=== PATIENT | female | born 1965 | race Caucasian/White ===

== ENCOUNTER → 2020-10-17 | Outpatient (CLI) | payer MEDICARE, OTHER ==
[2020-10-18 11:15] LABS: RHEUMATOID ARTHRITIS FACTOR <10.0 IU/mL (0.0-13.9)
[2020-10-19 00:09] LABS: CCP ANTIBODIES IGG/IGA 5 units (0-19)
== END ==
LOC: LAB 09:31
PROVIDERS: Nurse Practitioner Family
DX: M25.50 Pain in unspecified joint (principal); M79.10 Myalgia, unspecified site; R76.8 Other specified abnormal immunological findings in serum; D89.9 Disorder involving the immune mechanism, unspecified
CPT/HCPCS: 36415; 82550; 83520; 85652; 86140; 86200; 86431

== ENCOUNTER → 2021-01-02 | Outpatient (CLI) | payer MEDICARE, OTHER | LOC: HEART 5 15:17 | DX: R06.02 Shortness of breath (principal) | CPT/HCPCS: 94010 ==

== ENCOUNTER → 2022-01-20 | Outpatient (CLI) | payer MEDICARE, OTHER | LOC: RAD 12:39 | DX: R05.9 Cough, unspecified (principal); R10.13 Epigastric pain; N20.9 Urinary calculus, unspecified | CPT/HCPCS: 71046; 74018 ==